=== PATIENT | female | born 1955 | race Caucasian/White ===

== ENCOUNTER → 2017-08-03 | Outpatient (CLI) | payer OTHER ==
[~2017-08-03] MED LIST: ASCO-182 PO; CALC-649 PO; CALC-947 PO; CETI5TAB22 PO; CIME200T87 PO; CLIN300C99 PO; EST42T PV; EST625 PO; ESTR0.4513 PO; FERR240T23 PO; FISH OIL1 CAP PO; FLUT16SP20 NS; GELA600C5 PO; HYDR-385 PO; HYDR-4309 PO; IBUP-1687 PO; MELA5TAB6 PO; MON10 PO; MULT-977 PO; MULT1CAP41 PO; TOLT4CAP13 PO; VAL500 PO; VALARIAN ROOT PO; [UNRECOGNIZED DRUG - CODE] PO
--- NOTE | 2017-08-03 08:47 | RADIOLOGY IMAGING REPORT ---
FACILITY: [facility] PATIENT NAME: Ivelisse Trujillo : 1955 MR: [id number] V: [id number] EXAM DATE: ORDERING PHYSICIAN: JEAN BUTT TECHNOLOGIST: Location: [facility] Patient: Ivelisse Trujilol : 1955 Visit/Account:[id number] Date of Sevice: 08/03/2017 SINUSES W/O CONTRAST One of the following dose optimization techniques was utilized in the performance of this exam: Autom ated exposure control; adjustment of the mA and/or kV according to the patient's size; or use of an i terative reconstruction technique. Specific details can be referenced in the facility's radiology C T exam operational policy. HISTORY: chronic sinusitis COMPARISON STUDIES: none TECHNIQUE: Contiguous axial images were obtained through the paranasal sinuses without intravenous c ontrast. Coronal and sagittal reformatted images were obtained from the axial source data. FINDINGS: Maxillary sinuses and OMC: Bilateral maxillary medial wall antrectomies. Mild mucoperiosteal thickeni ng changes seen in the floor of both maxillary sinuses and Frontal sinuses: Negative Ethmoid air cells: Sphenoid sinuses: Negative . Nasal septum / turbinates: Midline nasal septum. Mild akosua bullosa changes noted in both middle tur binates. Cribriform plate: Negative Orbits: Negative Visualized intracranial contents: negative Surrounding soft tissues: Negative IMPRESSION: 1. Minimal mucoperiosteal thickening changes noted in the floor of both maxillary sinuses left greate r than right. Maximal depth on the left approximately 3.5 mm. 2.. Post medial wall antrectomy changes. Report Dictated By: Kishor Yousif MD at 08/03/2017 8:37 AM Report E-Signed By: Kishor Yousif MD at 08/03/2017 8:42 AM WSN:[id number]
== END ==
LOC: CT 01:43
PROVIDERS: ATTEND Otolaryngology
DX: J32.0 Chronic maxillary sinusitis (principal)
CPT/HCPCS: 70486

== ENCOUNTER → 2017-08-10 | Outpatient (CLI) | payer OTHER ==
[~2017-08-10] MED LIST changes: +BUDE0.5A6 IH
== END ==
LOC: LAB 10:16
PROVIDERS: ATTEND Otolaryngology
DX: J30.9 Allergic rhinitis, unspecified (principal)
CPT/HCPCS: 36415; 86003

== ENCOUNTER → 2017-12-30 | Outpatient (CLI) | payer OTHER ==
[~2017-12-30] MED LIST changes: -HYDR-4309 PO; +HYDR-653 PO
== END ==
LOC: LAB 11:34
PROVIDERS: ATTEND Orthopaedic Surgery Hand Surgery
DX: M79.641 Pain in right hand (principal); M79.642 Pain in left hand; M06.9 Rheumatoid arthritis, unspecified
CPT/HCPCS: 36415; 84550; 85027; 85651; 86038; 86140; 86430

== ENCOUNTER → 2018-01-13 | Outpatient (CLI) | payer OTHER ==
--- NOTE | 2018-01-13 16:15 | RADIOLOGY IMAGING REPORT ---
FACILITY: [facility] PATIENT NAME: Ivelisse Trujillo : 1955 MR: [id number] V: [id number] EXAM DATE: ORDERING PHYSICIAN: CINTHIA PATINO TECHNOLOGIST: Location: [facility] Patient: Ivelisse Trujillo : 1955 Visit/Account:[id number] Date of Sevice: 01/13/2018 BONE MINERAL DENSITY DEXA Scan Clinical history: Osteopenia. Comparison: DEXA scan from 01/03/2017. LUMBAR SPINE: The bone mineral density (BMD) measured from L1-L4 correlates with a Z-score 0.3 and a T-score of -1 .3 which is osteopenia as defined by the World Health Organization. The corresponding risk of fractu re in the lumbar spine is increased between 2-3 times compared with a young adult reference populatio n. This value has decreased by -1.5 % since the prior study. More than 5% change is considered sign ificant. HIP: Bone mineral density (BMD) measured in the Left total hip region correlates with a Z-score -0.4 and a T-score of -1.7 which is osteopenia as defined by the World Health Organization. The corresponding risk of fracture in the hip is increased between 3-4 times compared with a young adult reference popu lation. This value has decreased by -1.2 % since the prior study. More than 5% change is considered significant. Bone mineral density (BMD) measured in the Femoral Neck region measures 0.797 g/cm2. . T score -1.7. Osteopenia. Fracture risk increased between 3-4 times IMPRESSION: 1. Lumbar spine: Osteopenia. There has been decreased in the bone mineral density since the previou s exam. 2. Left Total Hip: Osteopenia. There has been decrease in the bone mineral density since the previo us exam. 3. Femoral Neck: Bone Mineral Density is 0.797 g/cm2. Osteopenia. The next DEXA scan of this patient should include the following sites: L1-L4 and the left hip. FRAX? WHO Fracture Risk Assessment Tool link: <http://www.shef.ac.uk/FRAX/tool.jsp?locationValue=9> PLEASE NOTE: 1) The World Health Organization defines low BMD as follows: T-score Normal > -1 Osteopenia < -1 and > -2.5 Osteoporosis < -2.5 without fractures Established osteoporosis < -2.5 with fractures 2) In general, you may wish to consider: Diagnosis Treatment Follow-up DEXA Normal BMD Prevention 2-3 years Osteopenia Prevention/therapy 1-2 years Osteoporosis Therapy Yearly 3) Fracture risk estimated from the T-score is more accurate for vertebral fractures (often spontane ous) than for hip fractures. Report Dictated By: Kishor Yousif MD at 01/13/2018 3:35 PM Report E-Signed By: Kishor Yousif MD at 01/13/2018 4:11 PM GERMAINE:JOSE ELIAS
--- NOTE | 2018-01-16 16:07 | RADIOLOGY IMAGING REPORT ---
FACILITY: [facility] PATIENT NAME: LORAINE REYES : [id number] MR: [id number] V: [id number] EXAM DATE: ORDERING PHYSICIAN: CINTHIA PATINO TECHNOLOGIST: Faby Malone PROCEDURE:BILATERAL DIGITAL SCREENING MAMMOGRAM WITH CAD ASSISTED INTERPRETATION & 3D TOMOSYNTHESIS COMPARISON:Prior mammograms 01/03/17, 01/02/16. INDICATIONS:SCREENING, HISTORY OF BILATERAL BENIGN BREAST BIOPSIES. FINDINGS: The breasts are extremely dense. A few punctuate regional right lateral breast microcalcifications are unchanged and favored to be benign. A punctuate solitary new microcalcification in the posterior Left breast at the nipple line seen on the MLO view is favored to be benign. No suspicious mass, microcalcification or architectural distortion. No significant change compared to priors. DIAGNOSTIC CATEGORY 1--NEGATIVE. RECOMMENDATIONS: ROUTINE MAMMOGRAM AND CLINICAL EVALUATION. IMPRESSION: BIRADS 1: Negative. Dictated by: Andres Michelle on 01/16/2018 at 9:01 Transcribed by: SAMUEL on 01/16/2018 at 9:37 Approved by: Andres Michelle on 01/16/2018 at 16:06 [facility]
== END ==
LOC: MAMO 00:46
PROVIDERS: ATTEND Obstetrics & Gynecology
DX: Z12.31 Encounter for screening mammogram for malignant neoplasm of breast (principal); M85.88 Other specified disorders of bone density and structure, other site
CPT/HCPCS: 77063; 77067; 77080